=== PATIENT | female | born 1965 | race African-American/Black ===

== ENCOUNTER 2021-10-24 23:22 | Emergency (ER) | payer BC ==
[~2021-10-24] VITALS: Ht 167.6 cm; Wt 101.6 kg
[~2021-10-24 23:22] MED LIST: ACETAMINOPHEN325 M1 PO; ASPIRIN EC81 M1 PO; GLUCOPHAGE XR500 MG PO; GLUMETZA500 PO; LISINOPRIL20 MG PO; PROTONIX40 M2 PO; SYNTHROID125 MCG PO; TOPROL XL50 MG PO; TRIAMTERENE-HC1 EAC3 PO
[2021-10-25 02:53] VITALS: BP 152/65
== END 2021-10-25 02:00 | disposition home or self-care (01) ==
LOC: ER 23:22
DX: I10 Essential (primary) hypertension (principal); E11.9 Type 2 diabetes mellitus without complications; Z79.899 Other long term (current) drug therapy